=== PATIENT | female | born 1975 | race Caucasian/White ===

== ENCOUNTER 2024-08-20 05:18 | Observation (INO) ==
--- NOTE | 2024-08-20 06:12 | Emergency Department Note ---
HPI - Abdominal Pain General Chief Complaint: Abdominal Pain Stated Complaint: STOMACH ACHE/BODY ACHES Time Seen by Provider: 08/20/24 05:26 Source: patient and family (spouse) Mode of arrival: walk-in Limitations: no limitations History of Present Illness HPI narrative: 48-year-old female with past medical history significant for COPD, cirrhosis of the liver, gastroparesis, esophageal varices, coronary artery disease, hypertension, dyslipidemia, abdominal aortic aneurysm, irritable bowel syndrome with constipation, colon polyps, GERD, depression, anxiety, diabetes, history of CABG, presents to the ED this morning with a 6-day history of generalized abdominal pain, nausea/vomiting, diarrhea. Pain is described as 3 out of 10 on pain scale, currently 10 out of 10 on pain scale at its worst, constant, cramping, worse with eating, better after having a bowel movement. Patient also states that she began having left-sided chest pain that started ~ 6hrs ago with associated SOB. Patient's chest pain is described as 4 out of 10 on pain scale, constant, described as pressure, worse with vomiting episodes, better with nothing. Patient reports pain began while she was laying in bed. MD elicited complaint: abdominal pain and other (CP, SOB) Onset (ago): day(s) (6) Pain Consistency: constant Location: diffuse (started in the lower abdomen, now diffuse) Severity: mild-moderate Quality: cramping Radiation: chest Exacerbating factors: eating and vomiting Relieving factors: bowel movement Context: other (denies known sick contacts, recent antibiotics, recent injury, recent surgery, recent travel, possible food poisoning) Associated symptoms: nausea, vomiting, diarrhea, fever (subjective), chills, melena and other (cough (chronic), no change) Treatments prior to arrival: other (Gas-X, Dramamine, Phenergan, Pepto-Bismol; Pt reports she takes Reglan daily) Related Data Hx Last Menstrual Period: Hx of hysterectomy Patient : No Patient lactating: No Home Medications Medication Instructions Recorded Confirmed aspirin 81 mg tablet,delayed 81 mg PO DAILY 08/20/24 08/20/24 release buspirone 15 mg tablet 15 mg PO BID 08/20/24 08/20/24 ezetimibe 10 mg tablet 10 mg PO DAILY 08/20/24 08/20/24 furosemide 40 mg tablet 40 mg PO DAILY 08/20/24 08/20/24 glipizide 5 mg tablet 5 mg PO BID 08/20/24 08/20/24 isosorbide dinitrate 5 mg tablet 5 mg PO DAILY 08/20/24 08/20/24 lisinopril 20 mg tablet 20 mg PO DAILY 08/20/24 08/20/24 metoclopramide HCl 10 mg tablet 10 mg PO TID 08/20/24 08/20/24 metoprolol tartrate 50 mg tablet 50 mg PO BID 08/20/24 08/20/24 ofloxacin 0.3 % ear drops 5 drp otic (ear) Q24H 08/20/24 08/20/24 omeprazole 40 mg capsule,delayed 40 mg PO DAILY 08/20/24 08/20/24 release ropinirole 2 mg tablet 2 mg PO .hs 08/20/24 08/20/24 venlafaxine 75 mg capsule,extended 75 mg PO DAILY 08/20/24 08/20/24 release 24 hr Allergies Allergy/AdvReac Type Severity Reaction Status Date / Time acetaminophen (From Percocet) Allergy Unknown Verified 08/20/24 05:52 aluminum Allergy Unknown Verified 08/20/24 05:52 hydrocodone (From Lorcet Allergy Unknown Verified 08/20/24 05:52 (hydrocodone)) hydromorphone (From Dilaudid) Allergy Unknown Verified 08/20/24 06:13 morphine Allergy Unknown Verified 08/20/24 06:13 nickel Allergy Unknown Verified 08/20/24 05:52 oxycodone (From Percocet) Allergy Unknown Verified 08/20/24 05:52 propoxyphene (From Allergy Unknown Verified 08/20/24 05:52 Darvocet-N) Review of Systems Status of ROS 10 or more systems reviewed and unremark able except as noted in history and below Constitutional Reports: fever (subjective), chills and fatigue Eyes Denies: change in vision, blurry vision, light sensitivity, eye discomfort or eye discharge Ears, nose, mouth, and throat Reports: dry mouth; Denies: throat pain, neck pain, throat swelling, difficulty swallowing, hoarseness, ear pain or nasal congestion Cardiovascular Reports: chest pain; Denies: palpitations, edema, swelling of feet/ankles or lightheadedness Respiratory Reports: shortness of breath and cough (chronic, no change); Denies: wheezing, pain on inspiration or chest congestion Gastrointestinal Reports: abdominal pain (see HPI), nausea, vomiting, diarrhea, bloating, change in bowel habits (dark stool) and other (feels bloated) Genitourinary Denies: painful urination, urinary frequency, urinary urgency, blood in urine, difficulty voiding, decreased urine ouput or vaginal discharge Musculoskeletal Denies: back pain, neck pain, extremity pain, extremity swelling, joint pain, limited range of motion or muscle weakness Integumentary/Breast Denies: rash, itching, changes in skin color or jaundice Neurological Reports: headache (Pt reports Hx of chronic CHAVIRA's); Denies: numbness in extremities, weakness in extremities, lack of coordination, dizziness or difficulty communicating thoughts Psychiatric Denies: anxiety or difficulty concentrating Endocrine Denies: excessive urination or excessive thirst Hematologic/Lymphatic Denies: easy bruising or easy bleeding PFSH PFSH Medical History Colon polyp Aortic aneurysm Diabetes Anxiety Dyslipidemia Hypertension Coronary artery disease Esophageal varices Gastroparesis Liver cirrhosis COPD (chronic obstructive pulmonary disease) Surgical History History of hysterectomy H/O toe surgery S/P CABG x 2 Social History Smoking status: current every day smoker What tobacco products do you use: cigarettes Packs per day: 1 Within the past year, how often did you have a drink containing alcohol: 4 or more times a week Within the past year, how many standard drinks containing alcohol did you have on a typical day: 10 or more Within the past year, how often did you have six or more drinks on one occasion: daily or almost daily Total score: 12 Score interpretation: A score of 3 or more indicates drinking is likely to affect patient's safety. Non-prescribed substance use: cannabis (any form) What is your current living situation: I presently have a place to live Problems where you live: no known problems In the past 12 months, utilities in danger of being shut off: no In past 12 months, lack of transportation kept you from medical appts, meetings, work, or getting things needed for daily living: No How hard is it for you to pay for the very basics like food, housing, medical care, and heating: decline to answer Past 12 mos, fear food will run out before able to buy more: never true In past 12 months, food didn't last until money to buy more: never true Are you following a diet prescribed by a doctor: No Are you following a special diet: No Do you want help finding or keeping work or a job: I do not need or want help Highest level of school completed/degree received: decline to answer Do you want help with school or training: No Caffeine: No How often does anyone, including family, friends and others, physically hurt you : decline to answer How often does anyone, including family, friends and others, insult or talk down to you: decline to answer How often does anyone, including family, friends and others, threaten you with harm: decline to answer How often does anyone, including family, friends and others, scream or curse at you: decline to answer Firearms in home: declined to answer Due to a physical, mental, or emotional condition, do you have difficulty doing errands alone such as visiting a doctor's office or shopping: No Little interest or pleasure in doing things: not at all Feeling down, depressed, or hopeless: not at all Feel stressed/tense/nervous/anxious/difficulty sleeping: not at all Do you think of yourself as: straight/heterosexual Gender Identity: female service: No Exam Constitutional: abnormal general appearance (disheveled), (chronically ill) and (appears older than stated age), no apparent distress, abnormal body habitus (obese), no limitations and alert Vital Signs - 24 hr 08/20/24 05:41 08/20/24 06:52 08/20/24 07:30 Temperature 98.4 F 98.4 F Pulse Rate 112 H 110 H 102 H Respiratory Rate 20 20 21 Blood Pressure 169/87 139/71 138/70 Pulse Oximetry 95 95 97 Oxygen Delivery Me thod Room Air Room Air Room Air HENMT: normocephalic, head/scalp atraumatic, hearing grossly normal bilaterally, external ears normal, TMs normal bilaterally, nasal mucous membranes normal, external nose normal, oral mucous membranes abnormal (dry) and oropharynx abnormal (erythema) (mild pharyngeal erythema) Eyes: PERRL, EOMs intact bilaterally, conjunctivae normal, no scleral icterus, alignment normal and periorbital findings normal Neck/C-Spine: visual inspection normal, trachea midline, cervical spine nontender, cervical full ROM noted, supple and no meningeal signs Lymph: no lymphadenopathy noted Chest: inspection of chest normal and palpation of chest normal Respiratory: breath sounds equal bilaterally, normal respiratory effort, auscultation abnormal (diminished bilateral bases) and no use of accessory muscles Cardiovascular: heart rate abnormal (tachycardic), regular rhythm noted, no murmur and peripheral pulses 2+ throughout Gastrointestinal: abdomen normal to inspection, abdomen soft to palpation, tender to palpation (moderate TTP upper abdomen, severe TTP lower abdomen), distended (moderately), abnormal bowel sounds noted (hypoactive bowel sounds), no hepatosplenomegaly and no masses Genitourinary: no CVA tenderness and bladder normal to palpation Back/Pelvis: spine normal to inspection, no thoracic spine tenderness, no lumbar spine tenderness, thoracic spine ROM normal and lumbar spine ROM normal Extremities: normal to inspection, normal to palpation, no tenderness, full ROM and no deformity Neurology: no movement abnormality noted, no focal motor deficit noted, no sensory deficits noted, gait normal, speech normal, coordination normal and GCS normal Psychiatry: mental status grossly normal, oriented x3, thought process normal, cooperative and affect normal Skin: skin color normal, no rash, no lesions, no ecchymosis noted, no wounds, no lacerations, skin turgor abnormal Reports (tenting) and no jaundice Course Course Hospital Course: 0640 - handoff given to Dr Siobhan Pinedo DO. Patient had digital rectal exam that showed his inflamed hemorrhoids no acute Taintor Hemoccult was negative CT shows colitis without any other significant findings. Patient states that she still having lower abdominal pain described to left quadrant and she rates it at a 4 at this time. In-depth conversation about alcohol abuse and need for stopping secondary to continued health decline. Although patient has denied rehab in the past and having a problem she now admits that she is scared and would like to stop dr vick even if it meant taken Antabuse as we had discussed in the past. Patient agreed to stay in the hospital to receive potassium and alcohol withdrawal precautions and will go to pain clinic as an outpatient. Discussed Jessica Arevalo who agreed to the admission Vital Signs Vital signs: Vital Signs Temperature 98.4 F 08/20/24 05:41 Pulse Rate 112 H 08/20/24 05:41 Respiratory Rate 20 08/20/24 05:41 Blood Pressure 169/87 08/20/24 05:41 Pulse Oximetry 95 08/20/24 05:41 Oxygen Delivery Method Room Air 08/20/24 05:41 Temperature 98.4 F 08/20/24 06:52 Pulse Rate 102 H 08/20/24 07:30 Respiratory Rate 21 08/20/24 07:30 Blood Pressure 138/70 08/20/24 07:30 Pulse Oximetry 97 08/20/24 07:30 Oxygen Delivery Method Room Air 08/20/24 07:30 MDM - Abdominal Pain Differential Diagnosis Differential diagnosis: Likely abdominal pain, acute appendicitis, calculus of kidney, diverticulitis, endometriosis, gastroenteritis, pancreatitis, small bowel obstruction and other (ileus, colitis, uti, angina unstable, costochondritis, ischemia) Medical Records Attestation: I reviewed the patient's medical records. Lab Data Attestation: I reviewed the patient's lab results. Labs: Lab Results 08/20/24 08/20/24 08/20/24 Range/Units 05:30 06:16 06:25 WBC 12.9 H (4.3-9.3) K/uL RBC 4.7 (4.00-5.50) M/uL Hgb 15.7 (12.5-15.8) gm/dL Hct 46.4 (35.9-46.7) % MCV 98.8 H (81.0-93.7) fl MCH 33.4 H (27.6-32.2) pg MCHC 33.8 (33.1-35.3) g/dl RDW 15.0 H (11.4-14.2) % Plt Count 198 (152-353) K/uL MPV 9.0 (6.9-10.8) fl Gran % 73.8 H (47.8-71.3) % Lymph % (Auto) 18.7 L (20.0-43.0) % [place] % (Auto) 5.9 (3.6-9.8) % Eos % (Auto) 1.1 (0.4-2.8) % Baso % (Auto) 0.5 (0.1-0.85) Lymph # (Auto) 2.4 (1.1-3.1) [place] # (Auto) 0.8 L (1.1-3.1) Eos # (Auto) 0.1 (0.0-0.2) Baso # (Auto) 0.1 (0.0-0.1) Absolute Gran (auto) 9.5 H (2.3-6.0) D-Dimer 738 H (100-600) ng/mL Sodium 138 (136-145) mmol/L Potassium 2.8 L (3.6-5.2) mmol/L Chloride 97.0 L (98-107) mmol/L Carbon Dioxide 27 (21-32) mmol/L Anion Gap 14.0 (4-14) mEq/L BUN 6 L (7-18) mg/dL Creatinine 0.9 (0.6-1.3) mg/dL Estimated GFR 78.9 (>59.9) Glucose 201 H (70-110) mg/dL Lactic Acid 5.2 H* (0.27-1.43) mmol/L Calcium 8.7 (8.5-10.1) mg/dL Total Bilirubin 0.48 (0.0-1.0) mg/dL AST 132 H (15-37) U/L ALT 70 H (30-65) U/L Alkaline Phosphatase 165 H (50-136) U/L Total Creatine Kinase 73 (26-192) U/L Troponin I High Sens 15.00 (4.0-60.4) ng/L B-Natriuretic Peptide 31.6 (0-100) pg/mL Total Protein 7.5 (6.4-8.2) g/dL Albumin 3.3 L (3.4-5.0) g/dL Lipase 86.0 H (16.0-77.0) U/L Urine Color Dark yellow (STRAW/YELL.) Urine Appearance Cloudy (CLEAR) Ur Specific [place] 1.015 (1.001-1.035) Urine Protein 1+ (NEGATIVE) Urine Glucose (UA) Normal (NORMAL) Urine Ketones Negative (NEGATIVE) Urine Occult Blood Negative (NEG - TRACE) Urine Nitrite Positive (NEGATIVE) Urine Bilirubin Negative (NEGATIVE) Urine Urobilinogen Normal (NORMAL) Ur Leukocyte Esterase Negative (NEGATIVE) Urine RBC Negative (0 - 5) Urine WBC 2 - 5 ( 0 - 5) Ur Epithelial Cells Rare (Few/HPF) Amorphous Sediment Negative (Negative) Urine Bacteria Many (Negative) Urine Mucus Negative (Negative) Urine Trichomonas Negative (Negative) Urine Yeast Negative (Negative) Fluid pH .0 (5 - 9) Stl Occ Bld (IFOB) Scr Negative (Negative) Urine Opiates Screen Neg. (NEGATIVE) Urine Methadone Screen Neg. (NEGATIVE) Barbiturate Screen Neg. (NEGATIVE) Ur Phencyclidine Scrn Neg. (NEGATIVE) Amphetamines Screen Neg. (NEGATIVE) U Benzodiazepines Scrn Neg. (NEGATIVE) Urine Cocaine Screen Neg. (NEGATIVE) U Marijuana (THC) Screen Pos. (NEGATIVE) Imaging Data Imaging ordered: CT scan - abdomen Radiologist's impression: AM: CT abdomen and pelvis with contrast HISTORY: Generalized abdominal pain with tachycardia and nausea/vomiting. COMPARISON: CT abdomen and pelvis from 12/15/2023. TECHNIQUE: Multiple axial images of the abdomen and pelvis were obtained from the lung bases to the pubic symphysis after the administration of IV contrast. Dose reduction techniques including Automated Exposure Control (AEC) and adjustment of mA and kV were utilized. FINDINGS: LOWER CHEST: No significant abnormality. LIVER: Similar cirrhotic morphology. No mass. BILIARY: Unremarkable gallbladder. No biliary ductal dilatation. PANCREAS: No significant abnormality. ADRENALS: No significant abnormality. SPLEEN: No significant abnormality. KIDNEYS: No significant abnormality. STOMACH AND BOWEL: Generalized mild colonic thickening with hyperemia and mild surrounding fat stranding. No evidence of bowel obstruction. APPENDIX: Not seen. PERITONEUM: No free fluid, free air or fluid collection. VASCULATURE:Moderate atherosclerosis. 3.5 x 2.6 cm aortic aneurysm at the level of the kidneys, unchanged. LYMPH NODES: No adenopathy. BLADDER: No significant abnormality. REPRODUCTIVE ORGANS: Prior hysterectomy. BONES: No significant abnormality. ADDITIONAL FINDINGS: None. IMPRESSION: Suspected uncomplicated colitis. No other acute findings. ECG Data Attestation: I personally reviewed and interpreted this ECG as follows: ECG interpretation date: 08/20/24 ECG interpretation time: 08:00 Prior ECG tracings: available for review Interpretation: EKG-sinus tachycardia, probable left atrial enlargement, borderline repull abnormality in diffuse leads, prolonged QT interval, rate 103, RR 580, SD 143 QT 401 Core Measures AMI core measures followed: Yes Smoking Cessaation Time spent discussing smoking cessation with patient: 3 to 10 minutes Patient Acknowledges Need for Cessation: Yes Discharge Plan Discharge Patient Disposition: Admitted As Inpatient Condition: Stable Chief Complaint: Abdominal Pain Clinical Impression: Acute cystitis, 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, Colitis, Hemorrhoids, Alcohol abuse, Alcohol withdrawal syndrome, Esophageal varices in alcoholic cirrhosis, Acute hypokalemia Prescriptions: No Action aspirin 81 mg tablet,delayed release (DR/EC) 81 mg PO DAILY buspirone 15 mg tablet 15 mg PO BID ezetimibe 10 mg tablet 10 mg PO DAILY furosemide 40 mg tablet 40 mg PO DAILY glipizide 5 mg tablet 5 mg PO BID isosorbide dinitrate 5 mg tablet 5 mg PO DAILY lisinopril 20 mg tablet 20 mg PO DAILY metoclopramide HCl 10 mg tablet 10 mg PO TID metoprolol tartrate 50 mg tablet 50 mg PO BID ofloxacin 0.3 % drops 5 drp OTIC (EAR) Q24H Patient Comments: x 15 days - started on 08/10/24 omeprazole 40 mg capsule,delayed release(DR/EC) 40 mg PO DAILY ropinirole 2 mg tablet 2 mg PO .hs venlafaxine 75 mg capsule,extended release 24hr 75 mg PO DAILY Print Language: Iranian Referrals: Siobhan Pinedo DO [Primary Care Provider] - Time of Disposition: 07:55
[2024-08-20] MEDS: KETOROLAC 30 MG/ML INJ VIAL IVP ONE ×2 (06:13→08:47)
[2024-08-20] MEDS: 0.9 % SODIUM CHLORIDE 500 ML IV ONE (06:16)
[2024-08-20] MEDS: ONDANSETRON HCL/PF 4 MG/2 ML VIAL IVP STA (06:16)
[2024-08-20 06:24] LABS: Basophils #(Absolute) Auto 0.1 (0.0-0.1); Basophils%(Percent) Auto 0.5 (0.1-0.85); Eosinophils#(Absolute)Auto 0.1 (0.0-0.2); Eosinophils%(Percent) Auto 1.1 % (0.4-2.8); Granulocytes % - Auto 73.8 % (47.8-71.3); Granulocytes#(Absolute)- Auto 9.5 (2.3-6.0); Hematocrit 46.4 % (35.9-46.7); Mean Corpuscular Volume 98.8 fl (81.0-93.7); Monocytes #(Absolute)- Auto 0.8 (1.1-3.1); Monocytes %(Percent)- Auto 5.9 % (3.6-9.8); Platelet Count 198 K/uL (152-353); White Blood Count 12.9 K/uL (4.3-9.3)
[2024-08-20 06:30] LABS: Potassium 2.8 mmol/L (3.6-5.2)
[2024-08-20 06:46] LABS: Specific Gravity Urine 1.015 (1.001-1.035); Urine Amorphous Sediment Negative (Negative); Urine Appearance CLOUDY (CLEAR); Urine Blood NEGATIVE (NEG - TRACE); Urine Color DARK YELLOW (STRAW/YELL.); Urine Urobilinogen Normal (NORMAL); Urine Yeast Negative (Negative)
[2024-08-20 06:57] LABS: Amphetamine Screen Urine NEG. (NEGATIVE); Cannabinoid Screen Urine POS. (NEGATIVE); Cocaine Screen Urine NEG. (NEGATIVE); Methadone Screen Urine NEG. (NEGATIVE); Opiate Screen Urine NEG. (NEGATIVE)
[2024-08-20] MEDS ORDERED: 0.9 % SODIUM CHLORIDE 50 ML IV ONE (08:33)
[2024-08-20] MEDS ORDERED: 0.9 % SODIUM CHLORIDE MB+ 100 ML IV ONE (08:33)
[2024-08-20] MEDS ORDERED: METOCLOPRAMIDE HCL 5 MG/ML VIAL ONE (08:33)
[2024-08-20] MEDS ORDERED: TRAMADOL HCL 50 MG TABLET PO ONE (08:34)
[2024-08-20] MEDS ORDERED: CEFTRIAXONE SODIUM 1 GM VIAL ONE (08:34)
[2024-08-20] MEDS ORDERED: POTASSIUM CHLORIDE 20 MEQ TAB.ER.PRT PO ONE (08:34)
[2024-08-20] MEDS ORDERED: HALOPERIDOL LACTATE 5 MG/ML VIAL ONE (08:45)
[2024-08-20] MEDS: METOCLOPRAMIDE HCL 10 MG in 0.9 % SODIUM CHLORIDE 50 ML IVP ONE (08:46)
[2024-08-20] MEDS: POTASSIUM CHLORIDE 20 MEQ TAB.ER.PRT PO ONE (08:46)
[2024-08-20] MEDS: CEFTRIAXONE SODIUM 1 GM in 0.9 % SODIUM CHLORIDE MB+ 50 ML IV ONE (08:47)
[2024-08-20] MEDS: HALOPERIDOL LACTATE 5 MG/ML VIAL IVP ONE (08:48)
[2024-08-20] MEDS ORDERED: VENLAFAXINE 75 MG PO SCH (09:00)
[2024-08-20] MEDS ORDERED: ISOSORBIDE DINITRATE 5 MG PO SCH (09:00)
[2024-08-20] MEDS ORDERED: HALOPERIDOL LACTATE 5 MG/ML VIAL INJ PRN (11:20)
[2024-08-20] MEDS ORDERED: diazePAM 10 MG/2 ML VIAL IVP PRN (11:20)
--- NOTE | 2024-08-20 11:52 | Internal Medicine H&P ---
Internal Medicine - H&P: HPI History of Present Illness Chief complaint: Unstable angina, Colitis, Hypokalemia, UTI Narrative: Patient presented to ER with 6 days of worsening lower abdominal and pelvic pain. Started last Thursday with nausea, abdominal discomfort, pelvic fullness, and abdominal cramping. It developed into diarrhea with poor p.o. intake. This progressed to the point that she was having jelly-like stooling, worsening pelvic cramping, and worsening malaise. In the ER she was found to be hypokalemic, leukocytotic, tachycardic, and hypertensive. She is also found to have a UTI, pancolitis on CT, and with an elevated lactate. She did receive IV Rocephin in the ER. She is feeling better after fluids and Zofran. Currently reports that her abdominal cramping has improved overall. It is still present, but better. No diarrhea since presenting to the ER. In general she feels much better. Review of Systems Status of ROS 10 or more systems reviewed and unremark able except as noted in history and below Constitutional Reports: fever (subjective), chills and fatigue Eyes Denies: change in vision, blurry vision, light sensitivity, eye discomfort or eye discharge Ears, nose, mouth, and throat Reports: dry mouth; Denies: throat pain, neck pain, throat swelling, difficulty swallowing, hoarseness, ear pain or nasal stuart estion Cardiovascular Reports: chest pain and shortness of breath with exertion; Denies: palpitations, edema, swelling of feet/ankles or lightheadedness Respiratory Reports: shortness of breath and cough (chronic, no change); Denies: wheezing, pain on inspiration or chest congestion Gastrointestinal Reports: abdominal pain (see HPI), nausea, vomiting, diarrhea, bloating, change in bowel habits (dark stool) and other (feels bloated); Denies: difficulty swallowing Genitourinary Denies: painful urination, urinary frequency, urinary urgency, blood in urine, difficulty voiding, decreased urine ouput or vaginal discharge Musculoskeletal Denies: back pain, neck pain, extremity pain, extremity swelling, joint pain, limited range of motion or muscle weakness Integumentary/Breast Denies: rash, itching, changes in skin color or jaundice Neurological Reports: headache (Pt reports Hx of chronic CHAVIRA's); Denies: numbness in extremities, weakness in extremities, lack of coordination, dizziness or difficulty communicating thoughts Psychiatric Denies: anxiety or difficulty concentrating Endocrine Reports: fatigue; Denies: excessive urination or excessive thirst Hematologic/Lymphatic Denies: easy bruising or easy bleeding Allergic/Immunologic Denies: throat swelling or wheezing PFSH PFS Medical History (Updated 08/20/24 @ 14:25 by Rikki Lunsford MD) Colon polyp Aortic aneurysm Diabetes Anxiety Dyslipidemia Hypertension Coronary artery disease Esophageal varices Gastroparesis Liver cirrhosis COPD (chronic obstructive pulmonary disease) Surgical History History of hysterectomy H/O toe surgery S/P CABG x 2 Social History Smoking status: current every day smoker What tobacco products do you use: cigarettes Packs per day: 1 Within the past year, how often did you have a drink containing alcohol: 4 or more times a week Within the past year, how many standard drinks containing alcohol did you have on a typical day: 10 or more Within the past year, how often did you have six or more drinks on one occasion: daily or almost daily Total score: 12 Score interpretation: A score of 3 or more indicates drinking is likely to affect patient's safety. Non-prescribed substance use: cannabis (any form) What is your current living situation: I presently have a place to live Problems where you live: no known problems In the past 12 months, utilities in danger of being shut off: no In past 12 months, lack of transportation kept you from medical appts, meetings, work, or getting things needed for daily living: No How hard is it for you to pay for the very basics like food, housing, medical care, and heating: decline to answer Past 12 mos, fear food will run out before able to buy more: never true In past 12 months, food didn't last until money to buy more: never true Are you following a diet prescribed by a doctor: No Are you following a special diet: No Do you want help finding or keeping work or a job: I do not need or want help Highest level of school completed/degree received: decline to answer Do you want help with school or training: No Caffeine: No How often does anyone, including family, friends and others, physically hurt you : decline to answer How often does anyone, including family, friends and others, insult or talk down to you: decline to answer How often does anyone, including family, friends and others, threaten you with harm: decline to answer How often does anyone, including family, friends and others, scream or curse at you: decline to answer Firearms in home: declined to answer Due to a physical, mental, or emotional condition, do you have difficulty doing errands alone such as visiting a doctor's office or shopping: No Little interest or pleasure in doing things: not at all Feeling down, depressed, or hopeless: not at all Feel stressed/tense/nervous/anxious/difficulty sleeping: not at all Do you think of yourself as: straight/heterosexual Gender Identity: female service: No Meds Home Medications and Allergies Home Medications Medication Instructions Recorded Confirmed Type aspirin 81 mg tablet,delayed 81 mg PO DAILY 08/20/24 08/20/24 History release buspirone 15 mg tablet 15 mg PO BID 08/20/24 08/20/24 History ezetimibe 10 mg tablet 10 mg PO DAILY 08/20/24 08/20/24 History furosemide 40 mg tablet 40 mg PO DAILY 08/20/24 08/20/24 History glipizide 5 mg tablet 5 mg PO BID 08/20/24 08/20/24 History isosorbide dinitrate 5 mg tablet 5 mg PO DAILY 08/20/24 08/20/24 History lisinopril 20 mg tablet 20 mg PO DAILY 08/20/24 08/20/24 History metoclopramide HCl 10 mg tablet 10 mg PO TID 08/20/24 08/20/24 History metoprolol tartrate 50 mg tablet 50 mg PO BID 08/20/24 08/20/24 History ofloxacin 0.3 % ear drops 5 drp otic (ear) Q24H 08/20/24 08/20/24 History omeprazole 40 mg capsule,delayed 40 mg PO DAILY 08/20/24 08/20/24 History release ropinirole 2 mg tablet 2 mg PO .hs 08/20/24 08/20/24 History venlafaxine 75 mg capsule,extended 75 mg PO DAILY 08/20/24 08/20/24 History release 24 hr Allergies Allergy/AdvReac Type Severity Reaction Status Date / Time acetaminophen (From Percocet) Allergy Unknown Verified 08/20/24 05:52 aluminum Allergy Unknown Verified 08/20/24 05:52 hydrocodone (From Lorcet Allergy Unknown Verified 08/20/24 05:52 (hydrocodone)) hydromorphone (From Dilaudid) Allergy Unknown Verified 08/20/24 06:13 morphine Allergy Unknown Verified 08/20/24 06:13 nickel Allergy Unknown Verified 08/20/24 05:52 oxycodone (From Percocet) Allergy Unknown Verified 08/20/24 05:52 propoxyphene (From Allergy Unknown Verified 08/20/24 05:52 Darvocet-N) Exam Constitutional: normal general appearance, no apparent distress, abnormal body habitus (obese), no limitations and alert Vital Signs - 24 hr 08/20/24 05:41 08/20/24 06:52 08/20/24 07:30 Temperature 98.4 F 98.4 F Pulse Rate 112 H 110 H 102 H Respiratory Rate 20 20 21 Blood Pressure 169/87 139/71 138/70 Pulse Oximetry 95 95 [facility] 08/20/24 08:00 08/20/24 08:30 08/20/24 09:30 Temperature Pulse Rate 100 H 106 H 106 H Respiratory Rate 20 20 20 Blood Pressure 151/89 149/85 150/87 Pulse Oximetry 97 97 97 [facility] 08/20/24 09:45 08/20/24 09:55 Temperature Pulse Rate 106 H 106 H Respiratory Rate 20 20 Blood Pressure 165/75 165/75 Pulse Oximetry 97 97 Oxygen Delivery [facility] Room Air HENMT: normocephalic, head/scalp atraumatic, hearing grossly normal bilaterally and external ears normal Eyes: PERRL, EOMs intact bilaterally and conjunctivae normal Neck/C-Spine: visual inspection normal and trachea midline Respiratory: breath sounds equal bilaterally, normal respiratory effort, clear to auscultation bilaterally and no wheezes Cardiovascular: normal heart rate noted, regular rhythm noted and no murmur Gastrointestinal: abdomen normal to inspection, abdomen soft to palpation, tender to palpation (mild), (LLQ) and (RLQ), nondistended, abnormal bowel sounds noted (hyperactive bowel sounds) and no hepatosplenomegaly Genitourinary: no CVA tenderness Extremities: normal to inspection, normal to palpation and full ROM Neurology: machine turner II-XII intact, no focal motor deficit noted, gait normal, speech normal, coordination normal and GCS normal Psychiatry: mental status grossly normal, oriented x3, thought process normal, cooperative, affect normal, psychomotor activity normal and memory normal Internal Medicine - H&P: Reslt Labs Labs: CBC WBC 12.9 K/uL (4.3-9.3) H 08/20/24 05:30 RBC 4.7 M/uL (4.00-5.50) 08/20/24 05:30 Hgb 15.7 gm/dL (12.5-15.8) 08/20/24 05:30 Hct 46.4 % (35.9-46.7) 08/20/24 05:30 MCV 98.8 fl (81.0-93.7) H 08/20/24 05:30 MCH 33.4 pg (27.6-32.2) H 08/20/24 05:30 MCHC 33.8 g/dl (33.1-35.3) 08/20/24 05:30 RDW 15.0 % (11.4-14.2) H 08/20/24 05:30 Plt Count 198 K/uL (152-353) 08/20/24 05:30 MPV 9.0 fl (6.9-10.8) 08/20/24 05:30 Gran % 73.8 % (47.8-71.3) H 08/20/24 05:30 Lymph % (Auto) 18.7 % (20.0-43.0) L 08/20/24 05:30 [place] % (Auto) 5.9 % (3.6-9.8) 08/20/24 05:30 Eos % (Auto) 1.1 % (0.4-2.8) 08/20/24 05:30 Baso % (Auto) 0.5 (0.1-0.85) 08/20/24 05:30 Lymph # (Auto) 2.4 (1.1-3.1) 08/20/24 05:30 [place] # (Auto) 0.8 (1.1-3.1) L 08/20/24 05:30 Eos # (Auto) 0.1 (0.0-0.2) 08/20/24 05:30 Baso # (Auto) 0.1 (0.0-0.1) 08/20/24 05:30 Absolute Gran (auto) 9.5 (2.3-6.0) H 08/20/24 05:30 BMP Sodium 138 mmol/L (136-145) 08/20/24 05:30 Potassium 2.8 mmol/L (3.6-5.2) L 08/20/24 05:30 Chloride 97.0 mmol/L (98-107) L 08/20/24 05:30 Carbon Dioxide 27 mmol/L (21-32) 08/20/24 05:30 Anion Gap 14.0 mEq/L (4-14) 08/20/24 05:30 BUN 6 mg/dL (7-18) L 08/20/24 05:30 Creatinine 0.9 mg/dL (0.6-1.3) 08/20/24 05:30 Estimated GFR 78.9 (>59.9) 08/20/24 05:30 Glucose 201 mg/dL (70-110) H 08/20/24 05:30 Calcium 8.7 mg/dL (8.5-10.1) 08/20/24 05:30 Phosphorus 2.6 mg/dL (2.5-4.9) 08/20/24 05:30 Magnesium 1.7 mg/dL (1.8-2.4) L 08/20/24 05:30 Total Bilirubin 0.48 mg/dL (0.0-1.0) 08/20/24 05:30 AST 132 U/L (15-37) H 08/20/24 05:30 ALT 70 U/L (30-65) H 08/20/24 05:30 Alkaline Phosphatase 165 U/L (50-136) H 08/20/24 05:30 Total Protein 7.5 g/dL (6.4-8.2) 08/20/24 05:30 Albumin 3.3 g/dL (3.4-5.0) L 08/20/24 05:30 Cardiac Enzymes Troponin I High Sens 19.20 ng/L (4.0-60.4) 08/20/24 08:45 Liver Function Total Bilirubin 0.48 mg/dL (0.0-1.0) 08/20/24 05:30 AST 132 U/L (15-37) H 08/20/24 05:30 ALT 70 U/L (30-65) H 08/20/24 05:30 Alkaline Phosphatase 165 U/L (50-136) H 08/20/24 05:30 Total Protein 7.5 g/dL (6.4-8.2) 08/20/24 05:30 Albumin 3.3 g/dL (3.4-5.0) L 08/20/24 05:30 Urine Urine Color Dark yellow (STRAW/YELL.) 08/20/24 06:16 Urine Appearance Cloudy (CLEAR) 08/20/24 06:16 Ur Specific [place] 1.015 (1.001-1.035) 08/20/24 06:16 Urine Protein 1+ (NEGATIVE) 08/20/24 06:16 Urine Glucose (UA) Normal (NORMAL) 08/20/24 06:16 Urine Ketones Negative (NEGATIVE) 08/20/24 06:16 Urine Occult Blood Negative (NEG - TRACE) 08/20/24 06:16 Urine Nitrite Positive (NEGATIVE) 08/20/24 06:16 Urine Bilirubin Negative (NEGATIVE) 08/20/24 06:16 Urine Urobilinogen Normal (NORMAL) 08/20/24 06:16 Ur Leukocyte Esterase Negative (NEGATIVE) 08/20/24 06:16 Assessment and Plan Assessment and Plan (1) Severe sepsis: Assessment and Plan: WBCs, HR, UTI/colitis, elevated lactate. IVFs. IV Cipro with IV Flagyl for now. Code(s): A41.9 - Sepsis, unspecified organism; R65.20 - Severe sepsis without septic shock (2) Viral colitis: Assessment and Plan: Will treat for bacterial colitis given timeframe. Also will be able to cover UTI this way. See above otherwise Code(s): A08.4 - Viral intestinal infection, unspecified (3) Acute urinary tract infection: Assessment and Plan: IV Cipro Code(s): N39.0 - Urinary tract infection, site not specified (4) Acute hypokalemia: Assessment and Plan: Try to replete orally. Recheck BMP later today. Repeat CBC and BMP in AM. Code(s): E87.6 - Hypokalemia
[2024-08-20] MEDS: VENLAFAXINE HCL 37.5 MG CAP.ER.24H PO SCH (11:55)
[2024-08-20] MEDS: ASPIRIN 81 MG TABLET.DR PO SCH (11:55)
[2024-08-20] MEDS: METOPROLOL TARTRATE 50 MG TABLET PO SCH (11:56)
[2024-08-20] MEDS: lisinopriL 20 MG TABLET PO SCH (11:56)
[2024-08-20] MEDS: BUSPIRONE HCL 15 MG TABLET PO SCH (11:56)
[2024-08-20] MEDS: EZETIMIBE 10 MG TABLET PO SCH (11:57)
[2024-08-20] MEDS: POTASSIUM CHLORIDE IN WATER 10 MEQ/100 ML PIGGYBACK IV SCH ×3 (11:57→17:56)
[2024-08-20] MEDS: 0.9 % SODIUM CHLORIDE 1000 ML 1,000 ML IV SCH (11:58)
[2024-08-20] MEDS: ISOSORBIDE DINITRATE 10 MG TABLET PO SCH (12:44)
[2024-08-20] MEDS: LORazepam 2 MG/ML VIAL IVP SCH (12:50)
[2024-08-20] MEDS: KETOROLAC 30 MG/ML INJ VIAL IM PRN (12:54)
[2024-08-20] MEDS: [UNRECOGNIZED DRUG - OTHER] IV SCH (14:17)
[2024-08-20] MEDS: THIAMINE HCL IV SCH (14:17)
[2024-08-20] MEDS: MULTIVITAMIN IV SCH (14:17)
[2024-08-20] MEDS: FOLIC ACID IV SCH (14:17)
[2024-08-20] MEDS: CIPROFLOXACIN 400 MG/200ML-D5W 400 MG/200 ML PIGGYBACK IV SCH (15:18)
[2024-08-20] MEDS: POTASSIUM CHLORIDE IN WATER 10 MEQ/100 ML PIGGYBACK IV ONE (15:18)
[2024-08-20] MEDS: METRONIDAZOLE 500 MG/100ML-NS 500 MG/100 ML PIGGYBACK IV SCH (15:49)
[2024-08-20] MEDS: MAGNESIUM SULFATE 1 GM/2 ML VIAL ONE ×2 (15:50→15:51)
[2024-08-20] MEDS: THIAMINE HCL 100 MG/ML VIAL ONE (15:50)
[2024-08-20] MEDS: [UNRECOGNIZED DRUG - OTHER] IV ONE (15:51)
[2024-08-20] MEDS: FOLIC ACID 5 MG/ML VIAL ONE (15:51)
[2024-08-20] MEDS: TRAMADOL HCL 50 MG TABLET PO ONE (15:52)
[2024-08-20] MEDS: ONDANSETRON HCL/PF 4 MG/2 ML VIAL INJ PRN (16:40)
[2024-08-20] MEDS ORDERED: MAGNESIUM, ALUMINUM HYDROXIDE 30 ML ORAL.SUSP PO PRN (17:37)
[2024-08-20] MEDS: METOCLOPRAMIDE HCL 10 MG TABLET PO PRN (18:05)
[2024-08-20 20:35] LABS: Potassium 3.4 mmol/L (3.6-5.2)
[2024-08-20] MEDS: ROPINIROLE HCL 2 MG TABLET PO SCH (21:55)
[2024-08-21 04:58] LABS: Basophils #(Absolute) Auto 0.1 (0.0-0.1); Eosinophils#(Absolute)Auto 0.1 (0.0-0.2); Eosinophils%(Percent) Auto 2.1 % (0.4-2.8); Granulocytes % - Auto 67.6 % (47.8-71.3); Granulocytes#(Absolute)- Auto 4.6 (2.3-6.0); Hematocrit 41.1 % (35.9-46.7); Mean Corpuscular Volume 98.5 fl (81.0-93.7); Monocytes #(Absolute)- Auto 0.6 (1.1-3.1); Monocytes %(Percent)- Auto 8.8 % (3.6-9.8); Platelet Count 110 K/uL (152-353); White Blood Count 6.8 K/uL (4.3-9.3)
[2024-08-21 05:37] LABS: Potassium 3.1 mmol/L (3.6-5.2)
[2024-08-21 07:54] VITALS: BP 158/93; PULSE 83; RESP 19; TEMP 98.3
[2024-08-21] MEDS: FOLIC ACID 5 MG/ML VIAL ONE ×2 (09:49→11:07)
[2024-08-21] MEDS: MAGNESIUM SULFATE 1 GM/2 ML VIAL ONE (09:50)
[2024-08-21] MEDS: [UNRECOGNIZED DRUG - OTHER] IV ONE (09:51)
[2024-08-21] MEDS: THIAMINE HCL 100 MG/ML VIAL ONE (09:51)
--- NOTE | 2024-08-21 11:03 | Discharge Summary ---
DS: Providers Provider Date of admission: 08/20/24 08:17 Primary care physician: Siobhan Pinedo DO Admitting clinician: Rikki Lunsford Attending physician on admission: Rikki Lunsford Attending physician on discharge: Rikki Lunsford Discharging clinician: Rikki Lunsford Anticipated date of discharge: 08/21/24 DS: Diagnosis Discharge Diagnosis (1) Severe sepsis: Assessment and plan: resolved. (2) Viral colitis: Assessment and plan: resolving. (3) Acute urinary tract infection: Assessment and plan: improving. (4) Acute hypokalemia: Assessment and plan: improved. Plan Pt to be discharged with refill of KCl and scripts for Cipro/Flagyl x5 days. F/u with PCP for repeat labs. DS: Summary Hospital Course Hospital Course: 639 - handoff given to Dr Siobhan Pinedo DO. Patient had digital rectal exam that showed his inflamed hemorrhoids no acute Taintor Hemoccult was negative CT shows colitis without any other significant findings. Patient states that she still having lower abdominal pain described to left quadrant and she rates it at a 4 at this time. In-depth conversation about alcohol abuse and need for stopping secondary to continued health decline. Although patient has denied rehab in the past and having a problem she now admits that she is scared and would like to stop drinking even if it meant taken Antabuse as we had discussed in the past. Patient agreed to stay in the hospital to receive potassium and alcohol withdrawal precautions and will go to pain clinic as an outpatient. Discussed Jessica Arevalo who agreed to the admission Pt responded well to IVFs, elecrolyte replacement, and IV abx. Abdominal pain resolved overnight, she tolerated regular diet, held down liquids, and had BMs without any cramping. K+ improved, but still low at discharge. She reports that is chronic for her and she needs a refill of her KCl. Pt requesting to go home and feels much more at baseline. Discharged to home in improved, stable condition. Status at Discharge Functional status at discharge: independent ambulation Overall status at discharge: patient is progressing back to baseline Time Spent with Patient Time attestation: Total time spent providing and/or coordinating discharge services: Time spent: less than 30 minutes Exam Constitutional: normal general appearance, no apparent distress, abnormal body habitus (obese), no limitations and alert Vital Signs - 24 hr 08/20/24 12:17 08/20/24 17:00 08/20/24 17:00 Temperature 98.1 F 97.9 F Pulse Rate Pulse Rate [Right] 110 H 83 Respiratory Rate 19 20 Blood Pressure 126/68 Blood Pressure [Ri ght Arm] 140/80 126/68 Pulse Oximetry 98 93 L Oxygen Delivery Me thod Room Air Room Air 08/20/24 19:23 08/20/24 21:54 08/20/24 23:00 Temperature 98.1 F 97.7 F Pulse Rate 84 Pulse Rate [Right] 84 76 Respiratory Rate 17 14 Blood Pressure 130/79 Blood Pressure [Ri ght Arm] 130/79 124/74 Pulse Oximetry 94 L 90 L Oxygen Delivery Me thod Room Air Room Air 08/21/24 03:00 08/21/24 07:53 08/21/24 08:45 Temperature 98.6 F 98.3 F Pulse Rate 83 Pulse Rate [Right] 73 83 Respiratory Rate 18 19 Blood Pressure 158/93 Blood Pressure [Ri ght Arm] 139/80 158/93 Pulse Oximetry 97 93 L Oxygen Delivery Mo thod Room Air Room Air 08/21/24 08:46 08/21/24 08:47 Temperature Pulse Rate Pulse Rate [Right] Respiratory Rate Blood Pressure 158/93 158/93 Blood Pressure [Ri ght Arm] Pulse Oximetry Oxygen Delivery Me thod HENMT: normocephalic, head/scalp atraumatic, hearing grossly normal bilaterally, external ears normal and oral mucous membranes normal Eyes: PERRL, EOMs intact bilaterally and conjunctivae normal Neck/C-Spine: visual inspection normal and trachea midline Respiratory: breath sounds equal bilaterally, normal respiratory effort, clear to auscultation bilaterally and no wheezes Cardiovascular: normal heart rate noted, regular rhythm noted and no murmur Gastrointestinal: abdomen soft to palpation, nontender to palpation, nondistended and normoactive bowel sounds Genitourinary: no CVA tenderness Back/Pelvis: thoracic spine ROM normal and lumbar spine ROM normal Extremities: normal to inspection, normal to palpation, no tenderness and full ROM Neurology: coke drawer II-XII intact, no movement abnormality noted, no focal motor deficit noted, gait normal, speech normal, no fasciculations noted and GCS normal Psychiatry: mental status grossly normal, oriented x3, thought process normal, cooperative, affect normal, psychomotor activity normal and memory normal DS: Data Data Completed and Pending Labs on day of discharge: Labs from last 24 hours 08/21/24 08/20/24 04:20 20:15 WBC 6.8 RBC 4.2 Hgb 14.0 Hct 41.1 MCV 98.5 H MCH 33.6 H MCHC 34.1 RDW 15.0 H Plt Count 110 L MPV 8.9 Gran % 67.6 Lymph % (Auto) 20.5 [place] % (Auto) 8.8 Eos % (Auto) 2.1 Baso % (Auto) 1.0 H Lymph # (Auto) 1.4 [place] # (Auto) 0.6 L Eos # (Auto) 0.1 Baso # (Auto) 0.1 Absolute Gran (auto) 4.6 Sodium 139 139 Potassium 3.1 L 3.4 L Chloride 101.0 100.0 Carbon Dioxide 31 31 Anion Gap 7.0 8.0 BUN 8 9 Creatinine 0.9 1.0 Estimated GFR 78.9 69.5 Glucose 125 H 146 H Calcium 8.7 8.8 Phosphorus 2.7 Magnesium 2.1 Total Bilirubin 0.63 AST 59 H ALT 47 Alkaline Phosphatase 150 H B-Natriuretic Peptide 98.8 Total Protein 6.5 Albumin 2.8 L Triglycerides 144 Cholesterol 184 LDL Cholesterol 129.0 H VLDL Cholesterol, Calc 29 HDL Cholesterol 33 LDL/HDL Ratio 3.9 Cholesterol/HDL Ratio 5 Preliminary micro results at discharge 08/20/24 06:16 Urine Culture - Preliminary Urine,Clean Catch 08/20/24 08:45 Blood Culture - Preliminary Blood - Port Discharge Plan Discharge Disposition: Home, Self-Care Condition: Stable Discharge Medications: New ciprofloxacin HCl 250 mg tablet 250 mg PO BID Qty: 10 0RF metronidazole 250 mg tablet 250 mg PO Q8H Qty: 15 0RF potassium chloride 10 mEq capsule, extended release 10 meq PO BID Qty: 10 0RF Continued aspirin 81 mg tablet,delayed release (DR/EC) 81 mg PO DAILY buspirone 15 mg tablet 15 mg PO BID ezetimibe 10 mg tablet 10 mg PO DAILY furosemide 40 mg tablet 40 mg PO DAILY glipizide 5 mg tablet 5 mg PO BID isosorbide dinitrate 5 mg tablet 5 mg PO DAILY lisinopril 20 mg tablet 20 mg PO DAILY metoclopramide HCl 10 mg tablet 10 mg PO TID metoprolol tartrate 50 mg tablet 50 mg PO BID ofloxacin 0.3 % drops 5 drp OTIC (EAR) Q24H Patient Comments: x 15 days - started on 08/10/24 omeprazole 40 mg capsule,delayed release(DR/EC) 40 mg PO DAILY ropinirole 2 mg tablet 2 mg PO .hs venlafaxine 75 mg capsule,extended release 24hr 75 mg PO DAILY atorvastatin 80 mg tablet 80 mg PO DAILY montelukast 10 mg tablet 10 mg PO DAILY Discharge Orders: Discharge Order (Routine); Ordered 08/21/24 Ordered By: Rikki Lunsford Activity: increase activity as tolerated Diet: advance to your usual diet Interventions: MED/SURG & ICU Observation Charge Sheet Last Done: 08/21/24 05:38 Forms: Portal/Health Info Access Inst Follow-Ups: Siobhan Pinedo DO [Primary Care Provider] -
[2024-08-21] MEDS: CIPROFLOXACIN HCL 500 MG TABLET PO SCH (11:41)
[2024-08-21] MEDS: POTASSIUM CHLORIDE 20 MEQ TAB.ER.PRT PO ONE (11:42)
== END 2024-08-21 12:05 | disposition home or self-care (01) ==
LOC: ED 05:18 → MS 05:18
PROVIDERS: ADMIT Family Medicine; ATTEND Family Medicine
DX: R19.7 Diarrhea, unspecified; R06.02 Shortness of breath; R11.2 Nausea with vomiting, unspecified; A08.4 Viral intestinal infection, unspecified; N39.0 Urinary tract infection, site not specified; K70.30 Alcoholic cirrhosis of liver without ascites; Z72.0 Tobacco use; E87.6 Hypokalemia; I85.10 Secondary esophageal varices without bleeding; F10.139 Alcohol abuse with withdrawal, unspecified; R65.20 Severe sepsis without septic shock; K52.89 Other specified noninfective gastroenteritis and colitis; A41.9 Sepsis, unspecified organism; I25.700 Atherosclerosis of coronary artery bypass graft(s), unspecified, with unstable angina pectoris; R07.89 Other chest pain; R10.2 Pelvic and perineal pain; R10.84 Generalized abdominal pain; K64.9 Unspecified hemorrhoids